=== PATIENT | male | born 1985 | race Caucasian/White ===

== ENCOUNTER 2017-08-28 09:54 | Emergency (ER) | payer OTHER ==
[~2017-08-28] VITALS: Ht 172.7 cm; Wt 72.6 kg
[2017-08-28 10:02] VITALS: BP 102/84
== END 2017-08-28 10:16 | disposition home or self-care (01) ==
LOC: M.ERS 09:54
DX: J30.2 Other seasonal allergic rhinitis (principal); F17.210 Nicotine dependence, cigarettes, uncomplicated